=== PATIENT | female | born 1990 | race African-American/Black ===

== ENCOUNTER 2016-09-22 17:11 | Emergency (ER) | payer OTHER ==
[~2016-09-22] VITALS: Ht 162.6 cm; Wt 54.4 kg
[~2016-09-22 17:11] MED LIST: AMOXIL 875 MG875 MG PO; MOTRIN 800MG T800 MG PO; ORAJEL MOUTH SO TOP; PERCOCET 325 MG1 TA2 PO; TYLENOL #31 TAB PO
--- NOTE | 2016-09-22 19:09 | ED ANKLE/FOOT INJURY COMPLAINT ---
History of Present Illness General Chief Complaint: Lower Extremity Problems Stated Complaint: "MY FOOT SOMETHING IS WRONG WITH IT" RIGHT Source: patient Exam Limitations: no limitations Vital Signs & Intake/Output Vital Signs & Intake/Output Vital Signs Date Time Temp Pulse Resp B/P Pulse O2 O2 Flow FiO2 Ox Delivery Rate 09/22 1946 98.7 74 18 110/52 100 Room Air 09/22 1732 99.0 09/22 1725 99.0 86 20 112/68 100 Room Air Room Air Allergies Coded Allergies: NO KNOWN ALLERGIES (06/21/15) Reconcile Medications Amoxicillin (Amoxil 875 MG Tablets) 875 MG TAB 1 TAB PO BID DENTAL INFECTION Amoxicillin (Amoxil 875 MG Tablets) 875 MG TAB 1 TAB PO BID dental caries Benzalkonium Chloride/Benzoc (Orajel Mouth Sore Medicine 0.02%-20%-0.1%) 1 GEL GEL 1 NORMA TOP PRN DENTAL PAIN (Reported) Ibuprofen 600 MG TABLET 1 TAB PO TID PRN pain with food OXYCODONE HCL/ACETAMINOPHEN (Percocet 5-325 MG Tablet) 325 MG/5 MG TAB 1-2 TAB PO Q4-6 PRN PRN PAIN Tylenol With Codeine (Tylenol With Codeine #3 Tablet) 300 MG-30 MG TABLET 1-2 TAB PO Q6 PRN pain Yibuprofen (Motrin 800MG Tab) 800 MG TAB 800 MG PO Q6P PRN PAIN SCALE 4-6 Triage Note: PT TO ED WITH C/O RIGHT FOOT PAIN SINCE THIS EVENING, PT DENIES FALL OR INJURY TO THE AREA. PT ABLE TO WIGGLE TOES, "I CAN'T PUT IT DOWN". Triage Nurses Notes Reviewed? yes : No Patient currently breastfeeds: No HPI: Patient is a 26-year-old female presents complaining of severe right foot pain. Patient reports she was walking approximately 3 PM when she had a sudden onset of pain. Pain is a sharp pain, moderate at rest, severe with palpation and attempted ambulation. Patient was administered ibuprofen in triage with mild to moderate improvement. Patient's last menstrual period was approximately 2 months ago and reports that she could be . Patient denies fall, known trauma, numbness, any other joint pain. (DANIELLA MERCHANT,RAAD) Past History Travel History Traveled to [place] past 21 day No Medical History Any Pertinent Medical History? 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 No (RAAD AN) Review of Systems Review of Systems Constitutional: Denies: chills, fever. EENTM: Reports: no symptoms. Respiratory: Denies: cough, short of breath. Cardiovascular: Denies: chest pain. GI: Denies: abdominal pain. Genitourinary: Reports: no symptoms. Musculoskeletal: Reports: see HPI. Denies: back pain, neck pain. Skin: Denies: erythema, rash. Neurological/Psychological: Denies: headache, numbness, paresthesia. Hematologic/Endocrine: Denies: bruising, bleeding. Immunologic/Allergic: Denies: splenectomy. (RAAD AN) Physical Exam Physical Exam General Appearance: well developed/nourished, alert, awake Head: atraumatic, normal appearance Eyes: Bilateral: normal appearance, PERRL, EOMI. Ears, Nose, Throat: hearing grossly normal Neck: normal inspection, supple, full range of motion Cardiovascular/Respiratory: no respiratory distress Back: normal inspection, normal range of motion Leg/Knee/Thigh Left: normal range of motion, normal inspection Leg/Knee/Thigh Right: normal range of motion, normal inspection, nontender Ankle Right: normal inspection, normal range of motion, nontender Foot Right: tenderness on the plantar surface diffusely but greatest in the mid foot over the plantar fascia mild tenderness on the dorsal surface of the midfoot Neuro/Vascular: normal motor function, normal sensation Tendon: normal tendon function Skin: intact, normal color, warm/dry (RAAD AN) Progress Differential Diagnosis: fracture, sprain, contusion, plantar fasciitis, gout, lisfranc injury Plan of Care: Orders Procedure Date/time Status Durable Medical Equipment 09/22 2006 Active XRY-FOOT COMPLETE, RIGHT 09/22 191 Active URINE 09/22 172 Complete URINALYSIS 09/22 172 Complete Laboratory Tests 09/22/161925: Urinalysis LIGHT H, Urine Color YEL, Urine Clarity CLEAR, Urine pH 6.0, Ur Specific [place] >= 1.030, Urine Protein 100 H, Urine Ketones 40 H, Urine Nitrite NEG, Urine Bilirubin NEG, Urine Urobilinogen 0.2, Ur Leukocyte Esterase NEG, Ur Microscopic SEDIMENT EXAMINED, Urine RBC RARE, Urine WBC 1-3 H, Ur Epithelial Cells FEW, Urine Mucus MANY H, Urine Hemoglobin NEG, Urine Glucose NEG, Urine Test POSITIVE 1939: Discussed results of urine with patient. Patient requesting x- ray, reports that she is not going to continue with the and plans on getting and . X-ray contacted. Discussed with Dr. Pressley 2004: Pain improving. Patient now declining x-ray, does not want to wait for approval for x-ray. No significant mechanism of injury. Appears stable for conservative treatment and if no improvement to follow up for further outpatient evaluation. Discussed with patient, will place in hayden wrap and on crutches. Instructed patient to follow up with her Repair Servicer on Sunday for further evaluation. Will provide information for podiatry follow up if no improvement. (RAAD AN) Departure Departure Time of Disposition: 2004 Disposition: HOME OR SELF CARE Condition: Stable Clinical Impression Primary Impression: Foot sprain Qualifiers: Encounter type: initial encounter Laterality: right Qualified Code: S93.601A - Unspecified sprain of right foot, initial encounter Secondary Impressions: Qualifiers: Weeks of gestation: unspecified Qualified Code: Z33.1 - state, incidental Referrals: HOMER DPAmena,TIFFANY GORDONM,JOSE ANTONIO Reyna (PCP/Family) Additional Instructions: Rest, ice for 20 minutes 4-5 times a day, elevated, wear hayden wrap and use crutches. Follow up with Dr. Chisholm(foot doctor) and with your BOX CAR CHECKER on Sunday. Return to the ER if worsening of symptoms. Departure Forms: Customer Survey General Discharge Information Prescriptions: Current Visit Scripts Ibuprofen 1 TAB PO TID PRN pain #15 TAB with food (RAAD AN) PA/LOCKSTITCH TUNNEL ELASTIC OPERATOR Co-Sign Statement Statement: ED Attending supervision documentation- [] I saw and evaluated the patient. I have also reviewed all the pertinent lab results and diagnostic results. I agree with the findings and the plan of care as documented in the PA's/LOCKSTITCH TUNNEL ELASTIC OPERATOR's documentation. [X] I have reviewed the ED Record and agree with the PA's/LOCKSTITCH TUNNEL ELASTIC OPERATOR's documentation. [] Additions or exceptions (if any) to the PAs/LOCKSTITCH TUNNEL ELASTIC OPERATOR's note and plan are summarized below: [] (ABIGAIL PRESSLEY DO)
[2016-09-22 19:47] VITALS: BP 110/52
[2016-09-22] MEDS ORDERED: IBUPROFEN600 M1 PO (20:06)
== END 2016-09-22 20:19 ==
LOC: ERH 17:11
DX: S93.601A Unspecified sprain of right foot, initial encounter (principal); Z33.1 Pregnant state, incidental; X58.XXXA Exposure to other specified factors, initial encounter; Y93.01 Activity, walking, marching and hiking
CPT/HCPCS: 81001; 81025